=== PATIENT | male | born 1955 | race Caucasian/White ===

== ENCOUNTER → 2019-01-21 | Outpatient (CLI) | payer OTHER ==
[~2019-01-21] VITALS: Ht 172.7 cm; Wt 72.6 kg
[~2019-01-21] MED LIST: ASA81BEC PO
== END | disposition home or self-care (01) ==
LOC: GI 07:14
DX: Z12.11 Encounter for screening for malignant neoplasm of colon (principal); Z86.010 Personal history of colon polyps; K64.8 Other hemorrhoids; I10 Essential (primary) hypertension; I25.2 Old myocardial infarction; I42.2 Other hypertrophic cardiomyopathy; Z98.890 Other specified postprocedural states; Z79.899 Other long term (current) drug therapy
CPT/HCPCS: 62110; 62900